=== PATIENT | male | born 1955 | race Two or more races ===

== ENCOUNTER 2018-10-21 12:33 | Emergency (ER) | payer SELFPAY ==
[~2018-10-21] VITALS: Ht 182.9 cm; Wt 72.6 kg
[2018-10-21] MEDS ORDERED: RISPERDAL1 MG PO (12:38)
[2018-10-21] MEDS ORDERED: Haloperidol 5mg/ml Inj ONE (12:44)
[2018-10-21] MEDS ORDERED: Haloperidol 5mg/ml Inj IM ONE ×2 (12:45)
[2018-10-21] MEDS ORDERED: LORazepam Inj 2mg/ml 1ml IM ONE (12:45)
--- NOTE | 2018-10-21 13:00 | Emergency Room Report ---
History of Present Illness General Chief Complaint: Behavioral Complaint Source: EMS Present Illness HPI 63-year-old male patient presents the ER brought in by police and ambulance for behavioral disorder. Reports that [place] being disruptive. Reports patient has a history of PTSD. Denies thoughts of hurting himself or others, patient is currently NOT on a 5150 hold. Patient states that she has a history of PTSD for "years". States that he has not been taking his medicine since last November, states he was taking paroxetine and a second unknown medication. Denies acute complaints. Denies fever, chest pain, shortness of breath, abdominal pain. Denies history of heart attack or stroke. Denies drinking alcohol or drug use. Allergies: Coded Allergies: ASPIRIN (Verified Allergy, Unknown, 10/21/18) Patient History Past Medical History: see triage record Reviewed Nursing Documentation: PMH: Agreed; PSxH: Agreed Nursing Documentation-PMH Past Medical History: No History, Except For Hx Hypertension: Yes Hx Dialysis: No - BPH History Of Psychiatric Problem: Yes - PTSD Hx Cerebrovascular Accident: Yes Review of Systems All Other Systems: negative except mentioned in HPI Physical Exam Vital Signs Date Time Temp Pulse Resp B/P (MAP) Pulse Ox O2 Delivery O2 Flow Rate FiO2 10/21/18 12:26 98.1 90 20 136/80 98 Room Air Sp02 EP Interpretation: reviewed, normal General Appearance: well appearing, no apparent distress, alert, GCS 15, non- toxic Head: normocephalic, atraumatic Eyes: bilateral eye normal inspection, bilateral eye PERRL ENT: hearing grossly normal, normal pharynx, no angioedema, normal voice, uvula midline, moist mucus membranes Neck: full range of motion Respiratory: lungs clear, normal breath sounds, no rhonchi, no respiratory distress, no accessory muscle use, no wheezing, speaking full sentences Cardiovascular #1: regular rate, rhythm, no edema Gastrointestinal: non tender, soft, no mass, non-distended, no guarding, no rebound Genitourinary: no CVA tenderness Musculoskeletal: back normal, digits/nails normal, gait/station normal, normal range of motion, non-tender Neurologic: alert, oriented x3, responsive, motor strength/tone normal, sensory intact Psychiatric: mood/affect normal Skin: no rash Lymphatic: no adenopathy Medical Decision Making PA Attestation Dr. Simon is my supervising Physician whom patient management has been discussed with. Medicare Attestation I, LOC Keller, have personally evaluated this patient. Laboratory tests have been reviewed and addressed accordingly. The patient is deemed to present a danger to themselves and/or others. This is based on the exam, history ( provided by patient, EMS/[facility] and/or family) and observed or reported behavior. Attempts for non-invasive measures have been considered and/or attempted, however, have been futile. It is in the best interest of the nursing staff, the patient, and others involved in this patient's care that behavioral restraints be applied. Patient evaluation reveals the following: Diagnostic Impression: Primary Impression: Behavioral disorder Additional Impressions: History of post traumatic stress disorder Drug use Elevated BUN ER Course Pt. presents to the ED c/o behavioral disorder. Ddx considered but are not limited to anxiety, depression, drug use, alcohol use , behavioral disorder. Vital signs: are WNL, pt. is afebrile Ordered labs, urine drug screen, serum alcohol. ER COURSE: Upon initial arrival to the ER, patient appeared loud and abrasive, was swinging arms towards staff within the hospital, believe patient is a danger to others, necessitating the use of physical restraints. Urine drug screen positive for meth, patient states that he thinks "my friends put it in my coffee". Remainder of drug screen negative. No elevation in serum alcohol, acetaminophen, or salicylate levels. CBC shows mild increase in WBCs, likely secondary to meth use. Patient is afebrile, no obvious signs of infection, does not require antibiotic treatment at this time. CMP unremarkable other than mild elevation of BUN and creatinine, will provide patient with IV fluids. Patient to follow-up with primary care provider and discus referral at that time. Does not require acute treatment at this time, patient denies abdominal pain or hematuria. Discussed results with patient. Patient seen and evaluated by Dr. Thomas, psychiatrist who was nice enough to consul on this case. Advised on use of 2 mg IM haloperidol decanoate 1 time in the ER and to discharge patient home with Risperdal 2 mg, prescription provided by Dr. Thomas. States patient is okay for outpatient treatment and follow-up. Okay for discharge home. DISCHARGE: At this time pt is stable for d/c to home. Patient is resting comfortably, in no acute distress, nontoxic appearing, talking without difficulty. Patient to take medications as instructed Will provide with patient care instructions and any necessary prescriptions. Care plan and follow-up instructions provided. Patient instructed to follow-up with primary care provider in 3 - 5 days. Patient questions asked and answered. Patient reports understanding and agreement to treatment plan. ER precautions given. Patient instructed to return to ER immediately for any new or worsening of symptoms including but not limited to increasing SOB, persistent fever. - Please note that this Emergency Department Report was dictated using [employer] worker technology software, occasionally this can lead to erroneous entry secondary to interpretation by the dictation equipment. [employer] Labs Test 10/21/18 13:15 10/21/18 14:30 White Blood Count 13.8 K/UL (4.8-10.8) Red Blood Count 4.89 M/UL (4.70-6.10) Hemoglobin 14.5 G/DL (14.2-18.0) Hematocrit 41.6 % (42.0-52.0) Mean Corpuscular Volume 85 FL (80-99) Mean Corpuscular Hemoglobin 29.7 PG (27.0-31.0) Mean Corpuscular Hemoglobin Concent 34.9 G/DL (32.0-36.0) Red Cell Distribution Width 12.8 % (11.6-14.8) Platelet Count 166 K/UL (150-450) Mean Platelet Volume 10.3 FL (6.5-10.1) Neutrophils (%) (Auto) 83.9 % (45.0-75.0) Lymphocytes (%) (Auto) 6.0 % (20.0-45.0) Monocytes (%) (Auto) 9.3 % (1.0-10.0) Eosinophils (%) (Auto) 0.1 % (0.0-3.0) Basophils (%) (Auto) 0.8 % (0.0-2.0) Sodium Level 141 MMOL/L (136-145) Potassium Level 3.6 MMOL/L (3.5-5.1) Chloride Level 101 MMOL/L (98-107) Carbon Dioxide Level 24 MMOL/L (21-32) Anion Gap 16 mmol/L (5-15) Blood Urea Nitrogen 25 mg/dL (7-18) Creatinine 1.4 MG/DL (0.55-1.30) Estimat Glomerular Filtration Rate 51.2 mL/min (>60) Glucose Level 87 MG/DL (74-106) Calcium Level 10.0 MG/DL (8.5-10.1) Total Bilirubin 1.5 MG/DL (0.2-1.0) Direct Bilirubin 0.4 MG/DL (0.0-0.3) Aspartate Amino Transf (AST/SGOT) 97 U/L (15-37) Alanine Aminotransferase (ALT/SGPT) 38 U/L (12-78) Alkaline Phosphatase 74 U/L (46-116) Total Protein 8.0 G/DL (6.4-8.2) Albumin 4.8 G/DL (3.4-5.0) Globulin 3.2 g/dL Albumin/Globulin Ratio 1.5 (1.0-2.7) Salicylates Level 0.7 ug/mL (2.8-20) Acetaminophen Level < 2 MCG/ML (10-30) Serum Alcohol < 3 mg/dL Urine Opiates Screen Negative (NEGATIVE) Urine Barbiturates Screen Negative (NEGATIVE) Phencyclidine (PCP) Screen Negative (NEGATIVE) Urine Amphetamines Screen Positive (NEGATIVE) Urine Benzodiazepines Screen Negative (NEGATIVE) Urine Cocaine Screen Negative (NEGATIVE) Urine Marijuana (THC) Screen Negative (NEGATIVE) Last Vital Signs Date Time Temp Pulse Resp B/P (MAP) Pulse Ox O2 Delivery O2 Flow Rate FiO2 10/21/18 12:26 98.1 90 20 136/80 98 Room Air Status: improved Disposition: HOME, SELF-CARE Condition: Stable Patient Instructions: Acute Kidney Injury, Self-Destructive Behavior, Stimulant Use Disorder-Amphetamines Additional Instructions: Followup with primary care provider in 3 -5 days. Discuss need for further evaluation and treatment regarding elevated BUN. Followup with mental health urgent care. Do not use drugs. Take medications as directed. Patient questions asked and answered. ER precautions given, patient instructed to return to ER immediately for any new or worsening of symptoms. Wilbur Schmidt Oct 21, 2018 13:00
[2018-10-21 13:45] LABS: ANION GAP 16 mmol/L (5-15); BLOOD UREA NITROGEN 25 mg/dL (7-18); CARBON DIOXIDE 24 MMOL/L (21-32); CHLORIDE 101 MMOL/L (98-107); CREATININE 1.4 MG/DL (0.55-1.30); POTASSIUM 3.6 MMOL/L (3.5-5.1); SODIUM 141 MMOL/L (136-145)
[2018-10-21 14:00] VITALS: BP 145/76
[2018-10-21 14:00] LABS: BASOPHILS % (AUTO) 0.8 % (0.0-2.0); EOSINOPHILS % (AUTO) 0.1 % (0.0-3.0); HEMATOCRIT 41.6 % (42.0-52.0); HEMOGLOBIN 14.5 G/DL (14.2-18.0); MEAN CORPUSCULAR VOLUME 85 FL (80-99); MONOCYTES % (AUTO) 9.3 % (1.0-10.0); NEUTROPHILS % (AUTO) 83.9 % (45.0-75.0); PLATELET COUNT 166 K/UL (150-450); RED BLOOD COUNT 4.89 M/UL (4.70-6.10); RED CELL DISTRIBUTION WIDTH 12.8 % (11.6-14.8); WHITE BLOOD COUNT 13.8 K/UL (4.8-10.8)
[2018-10-21 14:04] LABS: ALANINE AMINOTRANSFERASE 38 U/L (12-78); ALBUMIN 4.8 G/DL (3.4-5.0); ALBUMIN/GLOBULIN RATIO 1.5 (1.0-2.7); ALKALINE PHOSPHATASE 74 U/L (46-116); ASPARTATE AMINO TRANSFERASE 97 U/L (15-37); BILIRUBIN,TOTAL 1.5 MG/DL (0.2-1.0)
[2018-10-21 14:06] LABS: BILIRUBIN,DIRECT 0.4 MG/DL (0.0-0.3)
[2018-10-21 16:00] VITALS: BP 138/74
[2018-10-21] MEDS ORDERED: Haloperidol Decanoate 50mg Inj IM ONE (16:00)
[2018-10-21 16:54] VITALS: BP 138/74
--- NOTE | 2018-10-21 19:37 | Consultation ---
History of Present Illness General Chief Complaint: Behavioral Complaint Present Illness HPI 63-year-old male patient presents the ER brought in by police and ambulance for behavioral disorder the pt has hx of drug use and his system was positive for meth. the pt was laughing inappropriately and however he was alert and oriented. he denied drug use he stated that he has a psychiatrist and takes meds. one of the meds he could recall was risprdal/ the pt didn't endorse si/ hi. no delusions/no avh Allergies: Coded Allergies: ASPIRIN (Verified Allergy, Unknown, 10/21/18) Medication History Scheduled Risperidone* (Risperdal*), 1 MG PO DAILY, (Reported) Patient History History Provided By: Patient, Medical Record, PMD Healthcare decision maker Resuscitation status Advanced Directive on File Review of Systems Psychiatric: Reports: emotional problems Physical Exam General Appearance: no apparent distress, alert, thin Neurologic: oriented x 3, responsive, normal mood/affect - slightly expansive and mood was alightly elevated Last 24 Hour Vital Signs Date Time Temp Pulse Resp B/P (MAP) Pulse Ox O2 Delivery O2 Flow Rate FiO2 10/21/18 16:54 97.9 89 16 138/74 100 Room Air 10/21/18 16:00 97.9 89 16 138/74 100 Room Air 10/21/18 14:00 98.5 78 18 145/76 100 Room Air 10/21/18 12:36 90 20 Room Air 10/21/18 12:26 98.1 90 20 136/80 98 Room Air Laboratory Tests Test 10/21/18 13:15 10/21/18 14:30 White Blood Count 13.8 K/UL (4.8-10.8) H Red Blood Count 4.89 M/UL (4.70-6.10) Hemoglobin 14.5 G/DL (14.2-18.0) Hematocrit 41.6 % (42.0-52.0) L Mean Corpuscular Volume 85 FL (80-99) Mean Corpuscular Hemoglobin 29.7 PG (27.0-31.0) Mean Corpuscular Hemoglobin Concent 34.9 G/DL (32.0-36.0) Red Cell Distribution Width 12.8 % (11.6-14.8) Platelet Count 166 K/UL (150-450) Mean Platelet Volume 10.3 FL (6.5-10.1) H Neutrophils (%) (Auto) 83.9 % (45.0-75.0) H Lymphocytes (%) (Auto) 6.0 % (20.0-45.0) L Monocytes (%) (Auto) 9.3 % (1.0-10.0) Eosinophils (%) (Auto) 0.1 % (0.0-3.0) Basophils (%) (Auto) 0.8 % (0.0-2.0) Sodium Level 141 MMOL/L (136-145) Potassium Level 3.6 MMOL/L (3.5-5.1) Chloride Level 101 MMOL/L (98-107) Carbon Dioxide Level 24 MMOL/L (21-32) Anion Gap 16 mmol/L (5-15) H Blood Urea Nitrogen 25 mg/dL (7-18) H Creatinine 1.4 MG/DL (0.55-1.30) H Estimat Glomerular Filtration Rate 51.2 mL/min (>60) Glucose Level 87 MG/DL (74-106) Calcium Level 10.0 MG/DL (8.5-10.1) Total Bilirubin 1.5 MG/DL (0.2-1.0) H Direct Bilirubin 0.4 MG/DL (0.0-0.3) H Aspartate Amino Transf (AST/SGOT) 97 U/L (15-37) H Alanine Aminotransferase (ALT/SGPT) 38 U/L (12-78) Alkaline Phosphatase 74 U/L (46-116) Total Protein 8.0 G/DL (6.4-8.2) Albumin 4.8 G/DL (3.4-5.0) Globulin 3.2 g/dL Albumin/Globulin Ratio 1.5 (1.0-2.7) Salicylates Level 0.7 ug/mL (2.8-20) L Acetaminophen Level < 2 MCG/ML (10-30) L Serum Alcohol < 3 mg/dL Urine Opiates Screen Negative (NEGATIVE) Urine Barbiturates Screen Negative (NEGATIVE) Phencyclidine (PCP) Screen Negative (NEGATIVE) Urine Amphetamines Screen Positive (NEGATIVE) H Urine Benzodiazepines Screen Negative (NEGATIVE) Urine Cocaine Screen Negative (NEGATIVE) Urine Marijuana (THC) Screen Negative (NEGATIVE) Height (Feet): 6 Weight (Pounds): 160 Assessment/Plan Assessment/Plan ptsd meth abuse the pt is not at imminent dts/sto the pt doesnt meet the criteria for hold nor iploc the pt was prescribed Risperdal and ordered haldol Nan Comer MD Oct 21, 2018 19:37
== END 2018-10-21 16:55 | disposition home or self-care (01) ==
LOC: EDBD 12:33 → EMR 16:50
DX: F91.9 Conduct disorder, unspecified (principal); R79.89 Other specified abnormal findings of blood chemistry; Z88.6 Allergy status to analgesic agent; I10 Essential (primary) hypertension; Z86.73 Personal history of transient ischemic attack (TIA), and cerebral infarction without residual deficits; F43.10 Post-traumatic stress disorder, unspecified; X58.XXXA Exposure to other specified factors, initial encounter; F15.10 Other stimulant abuse, uncomplicated
CPT/HCPCS: 36415; 80053; 80307; 82248; 85025; 96360; 96372; 99284; G0480; J1630; J1631; 80329